=== PATIENT | female | born 1990 | race Caucasian/White ===

== ENCOUNTER 2017-06-05 12:32 | Emergency (ER) | payer MEDICAID ==
[2017-06-05 12:41] VITALS: BP 105/66
--- NOTE | 2017-06-05 13:00 | ED Physician Documentation ---
PD HPI URI - Stated complaint Stated Complaint: EAR/THROAT PX - Chief complaint Chief Complaint: Heent - History obtained from History obtained from: Patient - History of Present Illness Timing - onset: How many days ago (3 days of sore throat. Has had right ear discomfort for 2 weeks.) Timing details: Gradual onset, Waxing and waning Associated symptoms: Ear pain (right), Nasal congestion, Sore throat. No: Fever , Chills, Swollen nodes, Dry cough, NVD Contributing factors: No: Immunocompromised Similar symptoms before: Has not had sx before Recently seen: Not recently seen Review of Systems Constitutional: reports: Myalgias. denies: Fever, Chills Ears: reports: Ear pain (right without drainage). denies: Drainage/discharge Nose: reports: Congestion. denies: Rhinorrhea / runny nose, Sinus pressure / pain Throat: reports: Sore throat. denies: Dental pain / toothache, Oral lesions / sores Respiratory: denies: Cough GI: denies: Nausea, Diarrhea Skin: denies: Rash PD PAST MEDICAL HISTORY - Past Medical History Past Medical History: No - Past Surgical History Past Surgical History: Yes - Present Medications Home Medications: Ambulatory Orders Medication Instructions Recorded Confirmed Sumatriptan [Imitrex] 50 mg PO ONCE PRN #12 tablet 06/10/16 06/05/17 Dexamethasone [Decadron] 4 mg PO DAILY #5 tablet 06/05/17 Neomycin/Polymyx/Hc Otic Drops 4 drops OT TID #1 bottle 06/05/17 [Cortisporin Ear Susp] - Allergies Allergies/Adverse Reactions: Allergies Allergy/AdvReac Type Severity Reaction Status Date / Time No Known Drug Allergies Allergy Verified 06/05/17 12:52 - Social History Does the pt smoke?: No Smoking Status: Never smoker Does the pt drink ETOH?: Yes Does the pt have substance abuse?: Yes - Immunizations Immunizations are current?: Yes PD ED PE NORMAL - Vitals Vital signs reviewed: Yes - General General: Alert and oriented X 3, No acute distress, Well developed/nourished - HEENT HEENT: Ears normal (TMs are okay, but left lateral canal with some redness and mild swelling. No exudate per se. Mild wax both canals. ) - Neck Neck: Supple, no meningeal sign, No adenopathy - Cardiac Cardiac: RRR - Respiratory Respiratory: Clear bilaterally - Derm Derm: Normal color, Warm and dry, No rash - Neuro Neuro: Alert and oriented X 3, Normal speech Results - Vitals Vitals: Oxygen O2 Source Room air - Labs Labs: Microbiology 06/05/17 13:11 Group A Strep Throat Culture - Preliminary Throat Normal Oropharyngeal Meg Present in Culture Laboratory Tests 06/05/17 13:11 Group A Strep Rapid Negative PD MEDICAL DECISION MAKING - ED course Complexity details: considered differential (Main symptoms seen viral. She does have mild OE and will give some drops. ), d/w patient Departure - Departure Disposition: 01 Home, Self Care Clinical Impression: Upper respiratory infection Qualifiers: URI type: unspecified URI Qualified Code(s): J06.9 - Acute upper respiratory infection, unspecified Otitis externa Qualifiers: Otitis externa type: other infective Laterality: right Chronicity: acute Qualified Code(s): H60.391 - Other infective otitis externa, right ear Condition: Stable Record reviewed to determine appropriate education?: Yes Instructions: ED Pharyngitis Viral, ED Otitis Externa Prescriptions: Neomycin/Polymyx/Hc Otic Drops [Cortisporin Ear Susp] 4 drops OT TID #1 bottle Dexamethasone [Decadron] 4 mg PO DAILY #5 tablet Comments: Drink lots of fluids. Tylenol or ibuprofen if needed for pains. Decadron daily for several more days can help with the inflammation and pain. Your rapid strep test is negative and so presumed viral at this point. Separately your ear canal has a little irritation we can use some antibiotic/anti- inflammatory eardrops 3 times a day for the next few days 4-5 until better. Discharge Date/Time: 06/05/17 13:47
[2017-06-05] MEDS ORDERED: DEXAMETHASONE 10 MG/ML VIAL PO STA (13:12)
[2017-06-05] MEDS ORDERED: ACETAMINOPHEN 325 MG TABLET PO STA (13:12)
[2017-06-05] MEDS ORDERED: ACETAMINOPHEN 325 MG TABLET PO ONE (13:22)
[2017-06-05] MEDS ORDERED: DEXAMETHASONE 10 MG/ML VIAL ONE (13:22)
[2017-06-05] MEDS ORDERED: CHERRY SYRUP 10 ML UDC PO ONE (13:23)
[2017-06-05 13:30] LABS: RAPID STREP SCREEN REAGENT QC YELLOW (YELLOW)
== END 2017-06-05 13:47 | disposition home or self-care (01) ==
LOC: ED 12:32
DX: J06.9 Acute upper respiratory infection, unspecified (principal); H60.501 Unspecified acute noninfective otitis externa, right ear
CPT/HCPCS: 87070; 87430; 99283; A9270

== ENCOUNTER 2017-06-22 11:09 | Emergency (ER) | payer MEDICAID ==
[2017-06-22 11:17] VITALS: BP 126/87
[2017-06-22] MEDS ORDERED: DEXAMETHASONE 10 MG/ML VIAL PO STA (12:27)
--- NOTE | 2017-06-22 12:30 | ED Physician Documentation ---
PD HPI HEENT - Stated complaint Stated Complaint: COUGH,CONGESTED - Chief complaint Chief Complaint: Resp - History obtained from History obtained from: Patient - History of Present Illness Timing - onset: How many weeks ago (3) Timing - duration: Weeks (3) Timing - details: Gradual onset, Still present Location: Sinuses Improves: Medication Worsens: Swalllowing Associated symptoms: Congestion, Rhinorrhea, Facial swelling, Cough Similar symptoms before: Diagnosis (sinusitis) Recently seen: Emergency Dept (2 1/2 weeks ago given a dose of decadron in the Ed and did not fill her scripts.) - Additional information Additional information: 26-year-old female is been sick for about 3 weeks with a cough and congestion she has had progression of her symptoms with nasal congestion sinus pain yellow- green phlegm cough and morning difficulty with breathing. She did not take her medications prescribed when she was in the emergency department 2 weeks ago. Review of Systems Constitutional: reports: Chills, Myalgias, Fatigue. denies: Fever Eyes: denies: Decreased vision Ears: denies: Ear pain Nose: reports: Rhinorrhea / runny nose, Congestion, Sinus pressure / pain Throat: reports: Sore throat Cardiac: denies: Chest pain / pressure, Palpitations Respiratory: reports: Dyspnea, Cough GI: denies: Abdominal Pain, Nausea, Vomiting : denies: Dysuria, Frequency Skin: denies: Rash PD PAST MEDICAL HISTORY - Past Medical History Past Medical History: Yes Neuro: Headache/migraine - Past Surgical History Past Surgical History: Yes - Present Medications Home Medications: Ambulatory Orders Medication Instructions Recorded Confirmed Sumatriptan [Imitrex] 50 mg PO ONCE PRN #12 tablet 06/10/16 06/22/17 Amox/Clav 875/125 [Augmentin] 1 each PO Q12H #20 tablet 06/22/17 - Allergies Allergies/Adverse Reactions: Allergies Allergy/AdvReac Type Severity Reaction Status Date / Time No Known Drug Allergies Allergy Verified 06/05/17 12:52 - Social History Does the pt smoke?: No Smoking Status: Never smoker Does the pt drink ETOH?: Yes Does the pt have substance abuse?: Yes - Immunizations Immunizations are current?: Yes - POLST Patient has POLST: No PD ED PE NORMAL - Vitals Vital signs reviewed: Yes (hypertensive ) - General General: Alert and oriented X 3, Well developed/nourished, Other (obvious nasal quality to the voice. ) - HEENT HEENT: Atraumatic, PERRL, EOMI, Ears normal, Moist mucous membranes, Other ( There is bilateral sinus point tenderness with some mild midfacial swelling. ) - Neck Neck: Supple, no meningeal sign, No bony TTP - Cardiac Cardiac: RRR, No murmur - Respiratory Respiratory: No respiratory distress, Clear bilaterally - Abdomen Abdomen: Soft, Non tender - Back Back: No CVA TTP, No spinal TTP - Derm Derm: Normal color, Warm and dry, No rash - Extremities Extremities: No deformity, No edema - Neuro Neuro: No motor deficit, No sensory deficit - Psych Psych: Normal mood, Normal affect Results - Vitals Vitals: Vital Signs - 24 hr 06/22/17 11:13 Temperature 37.2 C Heart Rate 76 Respiratory 18 Rate Blood Pressure 126/87 H O2 Saturation 98 Oxygen O2 Source Room air PD MEDICAL DECISION MAKING - ED course Complexity details: reviewed old records, considered differential, d/w patient ED course: 26-year-old female with URI symptoms for the past 3 weeks has maxillary sinusitis on examination and symptoms consistent with persistent infection. She is administered dexamethasone 10 mg orally in the emergency department and we will place her on some Augmentin. Departure - Departure Disposition: 01 Home, Self Care Clinical Impression: Sinusitis, acute Qualifiers: Sinusitis location: maxillary Recurrence: not specified as recurrent Qualified Code(s): J01.00 - Acute maxillary sinusitis, unspecified Condition: Stable Instructions: ED Sinusitis Abx Tx Follow-Up: Your, doctor [Other] Prescriptions: Amox/Clav 875/125 [Augmentin] 1 each PO Q12H #20 tablet Comments: Today in the Emergency Department your blood pressure was elevated. This can happen from the stress of the visit itself, from a current illness or circumstance or from uncontrolled hypertension. If you take blood pressure medications take your usual mediations, have your blood pressure re-checked in an appropriate setting and follow up any elevation with your primary care doctor.
[2017-06-22] MEDS ORDERED: DEXAMETHASONE 10 MG/ML VIAL ONE (12:33)
== END 2017-06-22 12:36 | disposition home or self-care (01) ==
LOC: ED 11:09
DX: J01.00 Acute maxillary sinusitis, unspecified (principal); R03.0 Elevated blood-pressure reading, without diagnosis of hypertension
CPT/HCPCS: 99283